=== PATIENT | female | born 1995 | race Caucasian/White ===

== ENCOUNTER 2023-01-18 | Emergency (ER) | payer BC, MEDICAID ==
[2023-01-18] MEDS ORDERED: Azithromycin 250 MG Tab PO ONE (00:21)
[2023-01-18] MEDS ORDERED: Take Home: Codeine/guaiFENesin 100-10 MG/5 ML Syrup 5 ML, 2 Cup Pack PO ONE (00:22)
[2023-01-18 00:23] VITALS: BP 137/80; PULSE 89
== END 2023-01-18 00:38 | disposition home or self-care (01) ==
LOC: VM.ED
DX: J20.9 Acute bronchitis, unspecified (principal); Z91.040 Latex allergy status
CPT/HCPCS: 99284; A9270; 93010

== ENCOUNTER 2024-06-12 22:49 | Emergency (ER) | payer MEDICAID ==
[2024-06-13 01:29] VITALS: BP 127/87; PULSE 103
== END 2024-06-12 23:09 | disposition home or self-care (01) ==
LOC: VM.ED 22:49
DX: S61.213A Laceration without foreign body of left middle finger without damage to nail, initial encounter (principal); Z91.040 Latex allergy status; Z79.899 Other long term (current) drug therapy; X58.XXXA Exposure to other specified factors, initial encounter
CPT/HCPCS: 99282

== ENCOUNTER 2024-09-06 18:31 | Emergency (ER) | payer MEDICAID ==
[2024-09-06 19:38] LABS: BASOPHILS PERCENT AUTO 0.4 % (0.2-1.2); EOSINOPHILS ABSOLUTE AUTO 0.2 x10^3/uL (0.0-0.5); EOSINOPHILS PERCENT AUTO 2.4 % (0.0-4.0); HEMATOCRIT 41.3 % (33.0-47.0); HEMOGLOBIN 15.2 g/dL (12.0-16.0); IMMATURE GRAN ABSOLUTE AUTO 0.04 x10^3/uL (0.00-0.07); LYMPHOCYTES ABSOLUTE AUTO 1.9 x10^3/uL (1.0-4.8); LYMPHOCYTES PERCENT AUTO 20.3 % (25.0-50.0); MEAN CORPUSCULAR HEMOGLOBIN 31.7 pg (26.0-32.0); MEAN CORPUSCULAR HGB CONC 36.8 g/dL (32.0-36.0); MONOCYTES ABSOLUTE AUTO 0.5 x10^3/uL (0.0-0.8); MONOCYTES PERCENT AUTO 5.6 % (2.0-11.0); NEUTROPHILS ABSOLUTE AUTO 6.7 x10^3/uL (1.8-7.7); NEUTROPHILS PERCENT AUTO 70.9 % (50.0-80.0); PLATELET COUNT,PLT 194 x10^3/uL (130-400); WHITE BLOOD CELL COUNT,WBC 9.4 x10^3/uL (4.0-10.0)
[2024-09-06 19:45] VITALS: BP 156/87; PULSE 101
[2024-09-06 19:57] LABS: A/G RATIO 0.98; BILIRUBIN TOTAL 0.6 mg/dL (0.2-1.0); CALCIUM 9.3 mg/dL (8.5-10.1); CREATININE 0.8 mg/dL (0.55-1.02); EST CRCL DRUG DOSING (CG) 88.79 mL/min; POTASSIUM,K 3.9 mmol/L (3.5-5.1); PROTEIN TOTAL,TP 8.1 g/dL (6.4-8.2)
[2024-09-06 19:58] LABS: ANION GAP 14.9 mmol/L (5-15)
[2024-09-06] MEDS: Phenylephrine Supp RECTAL STA (20:20)
== END 2024-09-06 20:29 | disposition home or self-care (01) ==
LOC: VM.ED 18:31
DX: K64.8 Other hemorrhoids (principal); R73.9 Hyperglycemia, unspecified; Z79.899 Other long term (current) drug therapy; Z91.040 Latex allergy status
CPT/HCPCS: 36415; 80053; 85025; 99284; A9270; 99283